=== PATIENT | female | born 1950 | race Caucasian/White ===

== ENCOUNTER 2017-01-02 12:57 | Emergency (ER) | payer MEDICARE ==
[2017-01-02 13:23] LABS: BASOPHILS 0.3 % (0.0-2.0); EOSINOPHILS 0.4 % (0.0-6.0); HEMATOCRIT 46.2 % (36.0-48.0); HEMOGLOBIN 16.1 g/dL (12.0-16.0); LYMPHOCYTES 18.2 % (20.0-40.0); LYMPHOCYTES# 1.4 X 10^3uL (0.8-3.8); MEAN CELL VOLUME 91.2 fL (80.0-100.0); MEAN CORPUS. HGB CONCENTRATION 34.8 g/dL (32.0-36.0); MEAN CORPUSCULAR HEMOGLOBIN 31.7 pg (29.0-35.0); MEAN PLATELET VOLUME 7.2 fL (7.4-10.4); MONOCYTES 5.3 % (2.0-10.0); MONOCYTES# 0.4 X 10^3uL (0.2-1.0); NEUTROPHILS 75.8 % (54.0-75.0); NEUTROPHILS# 5.9 X 10^3uL (2.6-6.7); RED BLOOD COUNT 5.06 X 10^6uL (4.20-6.10); RED CELL DISTRIBUTION WIDTH 12.6 % (11.5-14.5); WHITE BLOOD COUNT 7.7 X 10^3uL (3.9-10.7)
[2017-01-02] MEDS ORDERED: DIPHENHYDRAMINE 50 MG/ML VIAL ONE (13:24)
[2017-01-02 13:29] LABS: A/G RATIO 1.2; ALBUMIN 4.7 g/dL (3.5-5.0); BILIRUBIN, TOTAL 0.8 mg/dL (0.2-1.3); CALCIUM 10.7 mg/dL (8.4-10.2); TOTAL PROTEIN 8.6 g/dL (6.3-8.2)
--- NOTE | 2017-01-02 14:11 | ER NURSING DOCUMENTATION ---
Nurse's Notes [facility] Name:Jerome Posey Age:66 yrs Sex:Female :1950 Arrival Date:01/02/2017 Time:12:57 Bed4 Private MD: Diagnosis:Migraine Headache Presentation: 01/02 13:01 Presenting complaint: Patient states: vomiting since midnight. states she now has a bw2 migraine but is unable to take her migraine medications. Transition of care: patient was not received from another setting of care. 13:01 Acuity: SUSAN 3 bw2 13:01 Method Of Arrival: Walk In bw2 Triage Assessment: 13:02 General: Appears uncomfortable, Behavior is appropriate for age. Pain: Complains of bw2 pain in generalized headache. Neuro: Reports headache in entire. GI: Reports nausea, vomiting, Denies diarrhea. Historical: - Allergies: No known drug Allergies; - Tetanus: < 10 years. - Ebola Screening: : Patient negative for fever greater than or equal to 101.5 degrees Fahrenheit, and additional compatible Ebola Virus Disease symptoms. Patient denies exposure to infectious person. Patient denies travel to an Ebola-affected area in the 21 days before illness onset. No symptoms or risks identified at this time. . - Immunization history: Flu Vaccine None. - Social history: Smoking status: Patient states was never smoker of tobacco. Screenin:04 Infectious Disease Risk None. Abuse screen: Denies threats or abuse. Nutritional bw2 screening: No deficits noted. Assessment: 13:03 GI: Abdomen is flat. bw2 Vital Signs: 13:00 BP 162 / 83; Pulse 105; Resp 20; Temp 97.7(O); Pulse Ox 98% on R/A; Weight 72.57 kg arc (R); Height 5 ft. 4 in. (162.56 cm) (R); Pain 10/10; 14:10 BP 148 / 66; Pulse 78; Resp 18; Pulse Ox 94% on R/A; bw2 13:00 Body Mass Index 27.46 (72.57 kg, 162.56 cm) arc ED Course: 13:00 Patient arrived in ED. dp 13:01 Brigid Pearson is Primary Nurse. bw2 13:01 Triage completed. bw2 13:04 Valuables Remains with patient Patient has correct armband on for positive bw2 identification. Bed in low position. Side rails up X2. 13:06 Inserted peripheral IV: 20 gauge in left antecubital area and blood collected. arc 13:08 Alfredo Rosalse MD is Attending Physician. tl1 14:02 Alfredo Rosales MD is Referral Physician. tl1 14:05 Referral Physician role handed off by Alfredo Rosales MD tl1 14:05 Sweetie Torrez MD is Referral Physician. tl1 Administered Medications: 13:15 Drug: Compazine 10 mg; Route: IVPB; Site: left antecubital; bw2 14:01 Follow up: IV Status: Completed infusion bw2 13:15 Drug: Benadryl 25 mg; Route: IVP; Site: left antecubital; bw2 14:01 Follow up: Response: Pain is decreased bw2 13:15 Drug: NS 0.9% 1000 ml; Route: IV; Rate: bolus; Site: left antecubital; bw2 14:01 Follow up: IV Status: Completed infusion 2 Outcome: 14:04 Discharge ordered by . tl1 14:10 Discharged to home ambulatory, with significant other. bw2 14:10 Condition: improved 14:10 Discharge Assessment: Patient awake, alert and oriented x 3. No cognitive and/or functional deficits noted. Patient verbalized understanding of disposition instructions. 14:10 Discharge instructions given to patient, significant other, Instructed on discharge instructions, follow up and referral plans. medication usage, Demonstrated understanding of instructions, medications, Prescriptions given X 1. 14:10 Patient left the ED. 2 01/03 11:49 Discharge F/U Call: Spoke with: patient. Are you having any pain? no. Have you filled lc your prescriptions? yes. Did your discharge instructions answer all of your questions? yes Overall Care on a scale of 1-10 with 10 being the best care, you rate our care as: Other comments: MUCH BETTER Signatures: Elisabeth Manrique, BETSY RN Alfredo Mays MD MD tl1 Irma Sheridan, Brigid Lange bw2 Ngoc Gutierrez
--- NOTE | 2017-01-02 14:11 | ER PHYSICIAN DOCUMENTATION ---
Physician Documentation [facility] Name:Jerome Posey Age:66 yrs Sex:Female :1950 Arrival Date:01/02/2017 Time:12:57 Bed4 Private MD: Alfredo Hines Disposition: 01/03 07:22 Chart complete. tl1 Disposition: 01/02/17 14:04 Discharged to Home/Self Care. Impression: Migraine Headache. - Condition is Good. - Discharge Instructions: HEADACHE, Migraine (Classical). - Prescriptions for Imitrex 20 mg/Actuation Nasal Aerosol, [place] - inhale 1 spray by INTRANASAL route once daily - x 1 dose; if headache returns, the dose may be repeated once after 2 hours, not to exceed a total daily dose of 2 sprays; 1 Inhaler. - Medical Reconciliation form form. - Follow up: Alfredo Rosales MD; When: 7 - 10 days; Reason: Recheck today's complaints. Follow up: Sweetie Torrez MD; When: 7 - 10 days; Reason: Recheck today's complaints. - Problem is new. - Symptoms have improved. HPI: 01/02 13:00 This 66 yrs old Female presents to ER via Walk In with complaints of tl1 Vomiting, Headache, Weakness. 13:00 She developed nausea and vomiting around midnight. This morning, she had some crampy tl1 and fairly severe epigastric/LUQ pain, and then develooped a typical migraine. Her biggest complaint at the time of arrival in the ED is her headache, which is still severe, as she was unable to keep her oral imitrex down. No f/c/s. No visual, speech, or other focal neurologic symptoms.. Historical: - Allergies: No known drug Allergies; - Tetanus: < 10 years. - Ebola Screening: : Patient negative for fever greater than or equal to 101.5 degrees Fahrenheit, and additional compatible Ebola Virus Disease symptoms. Patient denies exposure to infectious person. Patient denies travel to an Ebola-affected area in the 21 days before illness onset. No symptoms or risks identified at this time. . - Immunization history: Flu Vaccine None. - Social history: Smoking status: Patient states was never smoker of tobacco. ROS: 13:20 Abdomen/GI: Positive for abdominal pain, nausea, vomiting. tl1 13:20 All other systems are negative. Exam: 13:20 Constitutional: The patient appears alert, awake, well developed, well groomed, well tl1 nourished, in obvious distress, moderately distressed. 13:20 Head/face: Exam is negative for acute changes. 13:20 Eyes: Pupils: equal, round, and reactive to light and accomodation. 13:20 Neck: ROM/movement: is normal, is supple. 13:20 Cardiovascular: Rate: normal, Rhythm: regular, Heart sounds: normal. 13:20 Respiratory: the patient does not display signs of respiratory distress, Respirations: normal, Breath sounds: are normal. 13:20 Abdomen/GI: Inspection: abdomen appears normal, Palpation: abdomen is soft and non-tender. 13:20 : CVA tenderness, is absent. 13:20 Musculoskeletal/extremity: Exam is negative for acute changes. 13:20 Skin: Exam negative for acute changes, rash. 13:20 Neuro: Orientation: is normal, Mentation: is normal, Memory: is normal, Cranial nerves: grossly normal, Motor: moves all fours, Gait: is steady. Vital Signs: 13:00 BP 162 / 83; Pulse 105; Resp 20; Temp 97.7(O); Pulse Ox 98% on R/A; Weight 72.57 kg arc (R); Height 5 ft. 4 in. (162.56 cm) (R); Pain 10/10; 14:10 BP 148 / 66; Pulse 78; Resp 18; Pulse Ox 94% on R/A; bw2 13:00 Body Mass Index 27.46 (72.57 kg, 162.56 cm) arc MDM: 13:08 Patient medically screened. tl1 14:00 Differential diagnosis: Nonspecific abd pain, gastritis, diverticulitis, abdominal tl1 migraine, migraine. Data reviewed: vital signs, nurses notes, lab test result(s), CBC, electrolytes, hepatic panel, and as a result, I will discharge patient. Counseling: I had a detailed discussion with the patient and/or guardian regarding: the historical points, exam findings, and any diagnostic results supporting the discharge/admit diagnosis, lab results, the need for outpatient follow up, to return to the emergency department if symptoms worsen or persist or if there are any questions or concerns that arise at home. Response to treatment: the patient's symptoms have markedly improved after treatment, and as a result, I will discharge patient. 01/02 13:26 Order name: CBC AUTO DIF, MDIF/RMOR IF IND; Complete Time: 06:38 EDMS 01/03 06:37 Interpretation: Normal: WHITE BLOOD COUNT 7.7; HEMOGLOBIN 16.1; HEMATOCRIT 46.2; tl1 PLATELET COUNT 307. 01/02 13:31 Order name: COMPREHENSIVE METABOLIC PANEL; Complete Time: 06:38 EDMS 01/03 06:37 Interpretation: Normal Except: BLOOD UREA NITROGEN 26; CALCIUM 10.7; AST 40. tl1 Dispensed Medications: 13:15 Drug: Compazine 10 mg; Route: IVPB; Site: left antecubital; bw2 14:01 Follow up: IV Status: Completed infusion bw2 13:15 Drug: Benadryl 25 mg; Route: IVP; Site: left antecubital; bw2 14:01 Follow up: Response: Pain is decreased bw2 13:15 Drug: NS 0.9% 1000 ml; Route: IV; Rate: bolus; Site: left antecubital; bw2 14:01 Follow up: IV Status: Completed infusion bw2 Signatures: Alfredo Rosales MD MD tl1 Brigid Pearson bw2
== END 2017-01-02 14:11 | disposition home or self-care (01) ==
LOC: ER 12:57
DX: G43.009 Migraine without aura, not intractable, without status migrainosus (principal); R11.2 Nausea with vomiting, unspecified; R10.13 Epigastric pain; R10.12 Left upper quadrant pain; Z79.899 Other long term (current) drug therapy
CPT/HCPCS: 80053; 85025; 96365; 96375; 99283; 99284; J1200